=== PATIENT | male | born 1975 | race Caucasian/White ===

== ENCOUNTER 2024-12-05 00:11 | Emergency (ER) | payer BC ==
[2024-12-05] MEDS ORDERED: Lidocaine Viscous Sol 2% 15 ml UD Cup ONE (00:31)
[2024-12-05] MEDS ORDERED: Dexamethasone 10 MG/ML VIAL ONE (01:33)
== END 2024-12-05 01:43 | disposition home or self-care (01) ==
LOC: CSHERS 00:11
DX: R13.10 Dysphagia, unspecified (principal); F17.200 Nicotine dependence, unspecified, uncomplicated
CPT/HCPCS: 70360; 71046; J1100